=== PATIENT | female | born 1960 | race Hispanic/Latino ===

== ENCOUNTER 2021-10-09 08:32 | Day surgery (SDC) | payer BC ==
[2021-10-07 10:15] LABS: BASOPHILS % (AUTO) 1.7 % (0.0-5.0); HEMATOCRIT 43.2 % (36-48); MEAN CORPUSCULAR HEMOGLOBIN 26.5 pg (27.0-33.0); MEAN CORPUSCULAR HGB CONC 32.2 g/dL (32.0-36.0); MEAN CORPUSCULAR VOLUME 82.3 fL (79-99); MONOCYTES % (AUTO) 6.2 % (3.0-13.0); NEUTROPHILS % (AUTO) 59.9 % (40.0-77.0); PLATELET COUNT (AUTO) 269 K/uL (130-400); RED BLOOD CELL COUNT(AUTO) 5.25 MIL/uL (4.00-5.50); RED CELL DISTRIBUTION WIDTH 13.9 % (11.0-15.5)
[2021-10-07 10:18] VITALS: BP 118/60
[2021-10-07 10:29] LABS: CREATININE 1.2 mg/dL (0.5-1.5); POTASSIUM 4.7 mmol/L (3.5-5.1)
[~2021-10-09] VITALS: Ht 149.9 cm; Wt 52.8 kg
[2021-10-09] VITALS (17 sets, daily range): BP systolic 112–143; BP diastolic 56–72
[~2021-10-09 08:32] MED LIST: DAPA10TA PO; INSU100C14 SQ; INSU100I24 SQ
[2021-10-09] MEDS ORDERED: 0.9%NACL 1000ML 1,000 ML IV ONE (09:44)
[2021-10-09] MEDS ORDERED: CLINDAMYCIN IVPB 900MG/50ML 50 ML IV ONE (09:44)
[2021-10-09] MEDS ORDERED: EPINEPHRINE 1 MG/ML 30ML VIAL IJ ONE (14:02)
[2021-10-09] MEDS ORDERED: ROPIVACAINE 0.5% 5MG/ML 30ML IJ ONE (14:02)
[2021-10-09] MEDS ORDERED: DEXAMETHASONE SOD PHOSPHATE 10MG/ML 1ML VIAL ONE (14:03)
[2021-10-09] MEDS ORDERED: LIDOCAINE PF 100MG/5ML (2%) SYRINGE 5ML ONE (14:03)
[2021-10-09] MEDS ORDERED: ROCURONIUM 10MG/1ML SYR 10 MG/ML ML ONE (14:04)
[2021-10-09] MEDS ORDERED: ONDANSETRON 4MG INJ ONE ×2 (14:04→18:58)
[2021-10-09] MEDS ORDERED: PROPOFOL 10 MG/ML 20ML VIAL IV ONE (14:04)
[2021-10-09] MEDS ORDERED: MIDAZOLAM HCL 1 MG/ML 2ML VIAL ONE (14:04)
[2021-10-09] MEDS ORDERED: FENTANYL CITRATE PF 50 MCG/1 ML 2ML VIAL ONE ×2 (14:04→15:21)
[2021-10-09] MEDS ORDERED: PHENYLEPHRINE HCL 10 MG/ML 1ML VIAL IV ONE (14:48)
[2021-10-09] MEDS ORDERED: NEOSTIGMINE 5MG/5ML SYR IV ONE (15:03)
[2021-10-09] MEDS ORDERED: GLYCOPYRROLATE 1 MG/5 ML SYRINGE ONE (15:03)
[2021-10-09] MEDS ORDERED: HYDR-4060 PO (17:01)
[2021-10-09] MEDS ORDERED: CLIN-141 PO (17:01)
[2021-10-09] MEDS ORDERED: DEXTROSE 50%-WATER 50 ML DISP.SYRIN IV ONE (17:18)
[2021-10-09] MEDS ORDERED: MEPERIDINE-PF 25 MG/ML SYG ONE (17:35)
[2021-10-09] MEDS ORDERED: NALOXONE HCL 0.4 MG/1 ML ML ONE (18:37)
[2021-10-09] MEDS ORDERED: METOCLOPRAMIDE 10 MG/2 ML VIAL ONE (18:58)
[2021-10-09] MEDS ORDERED: SCOPOLAMINE HYDROBROMIDE 1 EACH ADH..PATCH TD ONE (19:00)
== END 2021-10-09 19:55 | disposition home or self-care (01) ==
LOC: DAH 08:32
PROVIDERS: ATTEND Orthopaedic Surgery
DX: M75.111 Incomplete rotator cuff tear or rupture of right shoulder, not specified as traumatic (principal); Z20.822 Contact with and (suspected) exposure to COVID-19; M75.21 Bicipital tendinitis, right shoulder; M75.01 Adhesive capsulitis of right shoulder; M65.811 Other synovitis and tenosynovitis, right shoulder; M25.811 Other specified joint disorders, right shoulder; M19.011 Primary osteoarthritis, right shoulder; E11.9 Type 2 diabetes mellitus without complications; Z79.899 Other long term (current) drug therapy; Z98.890 Other specified postprocedural states; Z88.8 Allergy status to other drugs, medicaments and biological substances; Z88.0 Allergy status to penicillin
CPT/HCPCS: 29826; 29827; 36415; 64415; 76942; 80048; 82948 ×3; 85025; 87635; A4215; A4221; A4222; A4223; A4565; A4649 ×4; A4663; A5120; A6204 ×2; C1713; C9803; G0168; J0171; J1100; J2001; J2175; J2250; J2310; J2370; J2405 ×2; J2704; J2710; J2765; J2795; J3010 ×2; J3490 ×2; J7030 ×2; J7070

== ENCOUNTER 2022-05-04 07:39 | Day surgery (SDC) | payer BC ==
[2022-05-01 10:52] LABS: BASOPHILS % (AUTO) 1.3 % (0.0-5.0); EOSINOPHILS % (AUTO) 1.9 % (0.0-8.0); LYMPHOCYTES % (AUTO) 18.4 % (21.0-51.0); MEAN CORPUSCULAR HEMOGLOBIN 27.4 pg (27.0-33.0); MEAN CORPUSCULAR HGB CONC 32.7 g/dL (32.0-36.0); MEAN CORPUSCULAR VOLUME 83.8 fL (79-99); MONOCYTES % (AUTO) 4.9 % (3.0-13.0); NEUTROPHILS % (AUTO) 73.1 % (40.0-77.0); PLATELET COUNT (AUTO) 290 K/uL (130-400); RED BLOOD CELL COUNT(AUTO) 5.25 MIL/uL (4.00-5.50); RED CELL DISTRIBUTION WIDTH 14.1 % (11.0-15.5)
[2022-05-01 11:03] LABS: CREATININE 1.3 mg/dL (0.5-1.5); POTASSIUM 4.6 mmol/L (3.5-5.1)
[2022-05-01 11:46] VITALS: BP 152/64
[~2022-05-04] VITALS: Ht 149.9 cm; Wt 51.1 kg
[2022-05-04] VITALS (17 sets, daily range): BP systolic 109–124; BP diastolic 47–65
[~2022-05-04 07:39] MED LIST changes: +INSU100V39 SQ
[2022-05-04] MEDS ORDERED: 0.9%NACL 1000ML 1,000 ML IV ONE (08:49)
[2022-05-04] MEDS ORDERED: CLINDAMYCIN IVPB 900MG/50ML 50 ML IV ONE (08:49)
[2022-05-04] MEDS ORDERED: SUCCINYLCHOLINE CHLORIDE 20 MG/ML 10 ML VIAL ONE (09:50)
[2022-05-04] MEDS ORDERED: PROPOFOL 10 MG/ML 20ML VIAL IV ONE (09:50)
[2022-05-04] MEDS ORDERED: ROCURONIUM 10MG/1ML SYR 10 MG/ML ML ONE (09:51)
[2022-05-04] MEDS ORDERED: MIDAZOLAM HCL 1 MG/ML 2ML VIAL ONE (09:51)
[2022-05-04] MEDS ORDERED: FENTANYL CITRATE PF 50 MCG/1 ML 2ML VIAL ONE (09:51)
[2022-05-04] MEDS ORDERED: EPHEDRINE SULFATE 50 MG/ML AMPULE ONE (11:07)
[2022-05-04] MEDS ORDERED: GLYCOPYRROLATE 1 MG/5 ML SYRINGE ONE (11:26)
[2022-05-04] MEDS ORDERED: NEOSTIGMINE 5MG/5ML SYR IV ONE (11:27)
[2022-05-04] MEDS ORDERED: CLIN300C3 PO (11:43)
[2022-05-04] MEDS ORDERED: ACET-2079 PO (11:43)
[2022-05-04] MEDS ORDERED: MEPERIDINE-PF 25 MG/ML SYG ONE (11:50)
== END 2022-05-04 13:40 | disposition home or self-care (01) ==
LOC: DAH 07:39
PROVIDERS: ATTEND Orthopaedic Surgery
DX: T84.84XA Pain due to internal orthopedic prosthetic devices, implants and grafts, initial encounter (principal); E11.9 Type 2 diabetes mellitus without complications; G89.29 Other chronic pain; Z79.01 Long term (current) use of anticoagulants; Z79.899 Other long term (current) drug therapy; Z98.890 Other specified postprocedural states; Z83.3 Family history of diabetes mellitus; Z88.0 Allergy status to penicillin; Y83.1 Surgical operation with implant of artificial internal device as the cause of abnormal reaction of the patient, or of later complication, without mention of misadventure at the time of the procedure
CPT/HCPCS: 80048; 85025; 87426; 36415; 20680; 82948 ×2; 73610; A4663; A4649; J3010; J3490 ×3; J2710; J0330; J7030; J2250; J2704; J2175; A6223; A4930 ×2; A5120; A4215; A4222; A4221